=== PATIENT | male | born 1960 | race Caucasian/White ===

== ENCOUNTER 2024-09-29 11:48 | Emergency (ER) | payer OTHER ==
[~2024-09-29] VITALS: Ht 170.2 cm; Wt 101.7 kg
[2024-09-29 12:03] VITALS: BP 161/98; PULSE 63; RESP 16; TEMP 98; O2SAT 95
[2024-09-29] MEDS ORDERED: OMEP-148 PO (12:33)
[2024-09-29] MEDS ORDERED: TIOT185 IH (12:33)
[2024-09-29] MEDS ORDERED: MONT-35 PO (12:33)
[2024-09-29] MEDS ORDERED: BUPR1TAB46 SL (12:33)
[2024-09-29] MEDS ORDERED: ATOR40TA28 PO (12:33)
[2024-09-29] MEDS ORDERED: MOME13HF12 IH (12:33)
[2024-09-29] MEDS ORDERED: SOTA80TA90 PO (12:33)
[2024-09-29] MEDS ORDERED: LEVO50 PO (12:33)
[2024-09-29] MEDS ORDERED: LOSA-382 PO (12:33)
[2024-09-29] MEDS ORDERED: MIRT-89 PO (12:33)
[2024-09-29 13:18] LABS: PLATELET COUNT (AUTO) 227 K/uL (150-450); RED BLOOD CELL COUNT(AUTO) 4.02 MIL/uL (4.50-5.90); RED CELL DISTRIBUTION WIDTH 14.2 % (11.5-14.5); WHITE BLOOD COUNT (AUTO) 5.8 K/uL (4.5-11.0)
[2024-09-29 13:27] LABS: CALCIUM, TOTAL 8.1 mg/dL (8.8-10.5); CREATININE 0.66 mg/dL (0.60-1.30); GLOMERULAR FILTR. RATE CALC > 60 mL/min (>60); GLUCOSE,RANDOM 80 mg/dL (70-110); SODIUM SERUM 141 mmol/L (136-145); UREA NITROGEN, BLOOD 15 mg/dL (7-18)
[2024-09-29 13:34] LABS: ASPARTATE AMINOTRANSFERASE 24.0 U/L (15-37); TOTAL PROTEIN, SERUM 6.7 g/dL (6.4-8.2)
[2024-09-29 13:38] LABS: TROPONIN I-HIGH SENSITIVITY 5 ng/L (<76)
== END 2024-09-29 16:38 ==
LOC: EMS 11:51
DX: K80.20 Calculus of gallbladder without cholecystitis without obstruction (principal); E03.9 Hypothyroidism, unspecified; G40.909 Epilepsy, unspecified, not intractable, without status epilepticus; I10 Essential (primary) hypertension; I48.91 Unspecified atrial fibrillation; J44.89 Other specified chronic obstructive pulmonary disease; K74.60 Unspecified cirrhosis of liver; Z87.891 Personal history of nicotine dependence; Z86.19 Personal history of other infectious and parasitic diseases; Z87.19 Personal history of other diseases of the digestive system; Z88.6 Allergy status to analgesic agent; Z79.51 Long term (current) use of inhaled steroids; Z79.899 Other long term (current) drug therapy
CPT/HCPCS: 76705; 80048; 80076; 83690; 84484; 85025; 93005; 99284